=== PATIENT | male | born 1970 | race African-American/Black ===

== ENCOUNTER 2018-09-06 17:39 | Emergency (ER) | payer MEDICAID ==
[2018-09-06] MEDS ORDERED: Ketorolac Tromethamine 30 MG/ML VIAL ONE (18:17)
[2018-09-06 18:49] LABS: #Basophils 0.1 thou/uL (0.0-0.2); #Eosinphils 0.1 thou/uL (0.0-0.7); #Lymphocytes 2.2 thou/uL (1.20-3.40); #Monocytes 0.6 thou/uL (0.11-0.59); #Neutrophils 3.5 thou/uL (1.40-6.50); %Basophils 2.1 % (0.0-1.0); %Eosinophils 1.1 % (0.0-10.0); %Lymphocytes 33.9 % (21.0-51.0); %Monocytes 8.9 % (0.0-10.0); %Neutrophils 54.1 % (42.0-75.0); Hemoglobin 12.8 g/dL (14.0-18.0); Mean Corpuscular HGB CONC 34.4 g/dL (32.0-36.0); Mean Corpuscular Hemoglobin 32.8 pg (27.0-31.0); Mean Corpuscular Volume 95.3 fL (78.0-98.0); Mean Platelet Volume 10.1 fL (7.4-10.4); Platelet Count 221 thou/uL (130-400); RBC Distribution Width 11.7 % (11.5-14.5); White Blood Cell (WBC) Count 6.5 thou/uL (4.8-10.8)
[2018-09-06 19:07] LABS: ALT (SGPT) 21 U/L (8-55); AST (SGOT) 22 U/L (5-34); Albumin 4.1 g/dL (3.5-5.0); Alkaline Phosphatase 123 U/L (40-150); Anion Gap 11 mmol/L (10-20); BUN (Urea Nitrogen) 21 mg/dL (8.9-20.6); Bilirubin, Total 0.9 mg/dL (0.2-1.2); CRP (Inflammatory) Less than 0.50 mg/dL (= or < 0.5); Calc. Creatinine Clearance 0 mL/min (70-130); Carbon Dioxide 18 mmol/L (22-29); Chloride 109 mmol/L (98-107); Estimated GFR-MDRD 61; Globulin 3.1 g/dL (2.4-3.5); Glucose 110 mg/dL (70-105); Potassium 3.6 mmol/L (3.5-5.1); Protein, Total 7.2 g/dL (6.0-8.3); Sodium 134 mmol/L (136-145)
[2018-09-06 19:13] LABS: Calcium 12.9 mg/dL (7.8-10.44)
[2018-09-06] MEDS ORDERED: traMADol HCl 50 MG TAB ONE (19:35)
== END 2018-09-06 19:50 | disposition home or self-care (01) ==
LOC: NAV ERS 17:39
DX: M79.604 Pain in right leg (principal); M79.641 Pain in right hand; E83.52 Hypercalcemia; I10 Essential (primary) hypertension; Z86.73 Personal history of transient ischemic attack (TIA), and cerebral infarction without residual deficits; F32.9 Major depressive disorder, single episode, unspecified; F17.210 Nicotine dependence, cigarettes, uncomplicated; Z86.718 Personal history of other venous thrombosis and embolism
CPT/HCPCS: 80053; 85025; 85379; 86140; 96374; J1885

== ENCOUNTER 2018-09-07 13:06 | Outpatient (CLI) | payer MEDICAID ==
--- NOTE | 2018-09-07 14:36 | RAD ---
RIGHT HAND THREE VIEWS: History: Right hand pain. Old injury. FINDINGS/IMPRESSION: No acute fracture, dislocation, or bony destruction is identified. POS: OFF
--- NOTE | 2018-09-07 15:28 | ULT ---
ULTRASOUND VENOUS DOPPLER RIGHT UNILATERAL: Date: 09/07/18 HISTORY: Swelling. Deep venous thrombosis. COMPARISON: None. FINDINGS: Real-time Jefferson scale and color Doppler with spectral analysis of the right lower extremity venous sy stem was performed. The common femoral, femoral, proximal portions of greater saphenous and deep femo ral vein, as well as the popliteal and posterior veins were interrogated. Normal flow, augmentation, and compression. The peroneal vein is dilated. IMPRESSION: No deep venous thrombosis. Dilated peroneal vein. This may be sequelae of prior venous thrombosis. POS: MARIANNE
== END 2018-09-07 13:07 | disposition home or self-care (01) ==
LOC: NAV ULT 13:06
PROVIDERS: ATTEND Nurse Practitioner Family
DX: M79.641 Pain in right hand (principal); I83.91 Asymptomatic varicose veins of right lower extremity; Z86.718 Personal history of other venous thrombosis and embolism

== ENCOUNTER 2018-09-16 12:00 | Emergency (ER) | payer MEDICAID ==
[2018-09-16] MEDS ORDERED: methylPREDNISolone Acetate 40 mg/ml Vial ONE (12:42)
== END 2018-09-16 13:00 | disposition home or self-care (01) ==
LOC: NAV ERS 12:00
DX: G89.29 Other chronic pain (principal); M79.651 Pain in right thigh; F32.9 Major depressive disorder, single episode, unspecified; F17.210 Nicotine dependence, cigarettes, uncomplicated; Z86.718 Personal history of other venous thrombosis and embolism; Z86.73 Personal history of transient ischemic attack (TIA), and cerebral infarction without residual deficits; Z79.891 Long term (current) use of opiate analgesic; Z79.899 Other long term (current) drug therapy
CPT/HCPCS: 96372; J1030

== ENCOUNTER 2018-10-11 00:04 | Emergency (ER) | payer MEDICAID ==
[2018-10-11] MEDS ORDERED: Morphine 4 MG/ML VIAL ONE (00:45)
[2018-10-11] MEDS ORDERED: Ondansetron PF 4 MG/2 ML Vial ONE (00:46)
[2018-10-11 00:54] LABS: INR-International Normal Ratio 1.1; PTT 30.3 SEC (22.9-36.1); Prothrombin Time 14.4 SEC (12.0-14.7)
[2018-10-11 01:01] LABS: #Basophils 0.1 thou/uL (0.0-0.2); #Eosinphils 0.1 thou/uL (0.0-0.7); #Monocytes 0.5 thou/uL (0.11-0.59); %Basophils 1.2 % (0.0-1.0); %Eosinophils 1.3 % (0.0-10.0); %Lymphocytes 25.8 % (21.0-51.0); %Monocytes 6.4 % (0.0-10.0); %Neutrophils 65.3 % (42.0-75.0); Hemoglobin 12.9 g/dL (14.0-18.0); Mean Corpuscular HGB CONC 32.9 g/dL (32.0-36.0); Mean Corpuscular Hemoglobin 31.7 pg (27.0-31.0); Mean Corpuscular Volume 96.5 fL (78.0-98.0); Mean Platelet Volume 10.2 fL (7.4-10.4); Platelet Count 137 thou/uL (130-400); RBC Distribution Width 11.5 % (11.5-14.5); Red Blood Cell (RBC) Count 4.06 mill/uL (4.70-6.10); White Blood Cell (WBC) Count 7.7 thou/uL (4.8-10.8)
[2018-10-11 01:09] LABS: D-Dimer Test 9.34 *mcg/mL (0.27-0.43)
[2018-10-11 01:11] LABS: ALT (SGPT) 13 U/L (8-55); AST (SGOT) 12 U/L (5-34); Albumin 3.9 g/dL (3.5-5.0); Alkaline Phosphatase 105 U/L (40-150); Anion Gap 11 mmol/L (10-20); BUN (Urea Nitrogen) 14 mg/dL (8.9-20.6); Bilirubin, Total 0.7 mg/dL (0.2-1.2); Calc. Creatinine Clearance 0 mL/min (70-130); Carbon Dioxide 20 mmol/L (22-29); Chloride 109 mmol/L (98-107); Estimated GFR-MDRD 55; Globulin 3.2 g/dL (2.4-3.5); Glucose 100 mg/dL (70-105); Potassium 4.1 mmol/L (3.5-5.1); Protein, Total 7.1 g/dL (6.0-8.3); Sodium 136 mmol/L (136-145)
[2018-10-11 01:16] LABS: Calcium 13.6 mg/dL (7.8-10.44)
[2018-10-11] MEDS ORDERED: Enoxaparin Sodium 100 MG/ML SYRINGE ONE (01:19)
== END 2018-10-11 02:15 | disposition short-term general hospital (02) ==
LOC: NAV ERS 00:04
DX: R60.0 Localized edema (principal); M79.662 Pain in left lower leg; E83.52 Hypercalcemia; Z86.73 Personal history of transient ischemic attack (TIA), and cerebral infarction without residual deficits; Z86.718 Personal history of other venous thrombosis and embolism; F32.9 Major depressive disorder, single episode, unspecified; F17.210 Nicotine dependence, cigarettes, uncomplicated; Z79.01 Long term (current) use of anticoagulants; Z79.899 Other long term (current) drug therapy
CPT/HCPCS: 80053; 85025; 85379; 85610; 85730; 96372; 96374; 96375; J1650; J2270; J2405

== ENCOUNTER 2018-11-08 11:05 | Emergency (ER) | payer MEDICAID ==
[2018-11-08] MEDS ORDERED: Ondansetron PF 4 MG/2 ML Vial ONE (11:30)
[2018-11-08] MEDS ORDERED: Sodium Chloride 0.9% 1,000 ML ONE ×2 (11:30→12:24)
[2018-11-08 11:59] LABS: ALT (SGPT) 15 U/L (8-55); AST (SGOT) 20 U/L (5-34); Albumin 3.7 g/dL (3.5-5.0); Alkaline Phosphatase 97 U/L (40-150); Anion Gap 13 mmol/L (10-20); BUN (Urea Nitrogen) 22 mg/dL (8.9-20.6); Bilirubin, Total 1.7 mg/dL (0.2-1.2); Calc. Creatinine Clearance 0 mL/min (70-130); Carbon Dioxide 17 mmol/L (22-29); Chloride 105 mmol/L (98-107); Estimated GFR-MDRD 42; Globulin 3.7 g/dL (2.4-3.5); Glucose 142 mg/dL (70-105); Lipase 13 U/L (8-78); Potassium 3.5 mmol/L (3.5-5.1); Protein, Total 7.4 g/dL (6.0-8.3); Sodium 131 mmol/L (136-145)
[2018-11-08 12:07] LABS: Hemoglobin 14.4 g/dL (14.0-18.0); MDiff Complete? YES; Mean Corpuscular HGB CONC 34.3 g/dL (32.0-36.0); Mean Corpuscular Hemoglobin 31.8 pg (27.0-31.0); Mean Corpuscular Volume 92.6 fL (78.0-98.0); Mean Platelet Volume 9.8 fL (7.4-10.4); Platelet Count 167 thou/uL (130-400); RBC Distribution Width 11.9 % (11.5-14.5); Red Blood Cell (RBC) Count 4.53 mill/uL (4.70-6.10); White Blood Cell (WBC) Count 9.5 thou/uL (4.8-10.8)
[2018-11-08 12:08] LABS: Band 6 % (5-11); Calcium 12.4 mg/dL (7.8-10.44); Eosinophils 1 % (0-10); Lymphocytes 5 % (21-51); Monocytes 8 % (0-10); Neutrophil 71 % (42-75); Platelet Morphology Comment Appears Adequate
== END 2018-11-08 13:45 | disposition home or self-care (01) ==
LOC: NAV ERS 11:05
DX: R11.2 Nausea with vomiting, unspecified (principal); R19.7 Diarrhea, unspecified; F32.9 Major depressive disorder, single episode, unspecified; F17.210 Nicotine dependence, cigarettes, uncomplicated; I25.2 Old myocardial infarction; Z86.73 Personal history of transient ischemic attack (TIA), and cerebral infarction without residual deficits
CPT/HCPCS: 80053; 83690; 85025; 96361; 96374; J2405; J7050

== ENCOUNTER 2018-11-14 14:12 | Outpatient (CLI) | payer MEDICAID, OTHER ==
--- NOTE | 2018-11-14 15:32 | RAD ---
RIGHT HAND THREE VIEWS: HISTORY: Right hand pain. FINDINGS: Mild angulation and cortical remodeling of the first metatarsal neck suggests an old healed injury. Mild joint space narrowing and osteophytosis at the first carpometacarpal joint with minimal lateral subluxation. Mild osteoarthritic changes also involve the distal interphalangeal joints on the later al view. No acute fracture, dislocation, or aggressive osseous erosions. IMPRESSION: 1. Old healed injury of the second metacarpal neck. 2. Mild degenerative changes. 3. No acute osseous abnormalities are demonstrated. POS: MARIANNE
== END 2018-11-14 14:13 | disposition home or self-care (01) ==
LOC: NAV RAD 14:12
PROVIDERS: ATTEND Family Medicine
DX: Z02.71 Encounter for disability determination (principal); M79.641 Pain in right hand; M19.041 Primary osteoarthritis, right hand; Z87.828 Personal history of other (healed) physical injury and trauma

== ENCOUNTER 2019-01-02 10:22 | Emergency (ER) | payer MEDICAID ==
--- NOTE | 2019-01-02 11:01 | RAD ---
Two-view chest: Indications cough Comparison 10/11/2018 Lungs appear clear. No infiltrate. Heart and mediastinum unremarkable. IMPRESSION: No acute finding
[2019-01-02] MEDS ORDERED: Fentanyl 100 MCG/2 ML VIAL ONE (11:24)
[2019-01-02] MEDS ORDERED: Ondansetron PF 4 MG/2 ML Vial ONE (11:24)
[2019-01-02] MEDS ORDERED: Aspirin Chewable 81 MG TAB ONE (11:25)
[2019-01-02 11:41] LABS: #Basophils 0.1 thou/uL (0.0-0.2); #Eosinphils 0.1 thou/uL (0.0-0.7); #Lymphocytes 1.3 thou/uL (1.20-3.40); #Monocytes 0.6 thou/uL (0.11-0.59); #Neutrophils 4.3 thou/uL (1.40-6.50); %Basophils 0.9 % (0.0-1.0); %Eosinophils 1.3 % (0.0-10.0); %Lymphocytes 20.9 % (21.0-51.0); %Monocytes 9.1 % (0.0-10.0); %Neutrophils 67.8 % (42.0-75.0); Hemoglobin 12.3 g/dL (14.0-18.0); Mean Corpuscular HGB CONC 31.9 g/dL (32.0-36.0); Mean Corpuscular Hemoglobin 30.2 pg (27.0-31.0); Mean Corpuscular Volume 94.6 fL (78.0-98.0); Mean Platelet Volume 8.2 fL (7.4-10.4); Platelet Count 172 thou/uL (130-400); RBC Distribution Width 12.2 % (11.5-14.5); Red Blood Cell (RBC) Count 4.07 mill/uL (4.70-6.10); White Blood Cell (WBC) Count 6.3 thou/uL (4.8-10.8)
[2019-01-02 11:45] LABS: ALT (SGPT) 13 U/L (8-55); AST (SGOT) 13 U/L (5-34); Albumin 3.7 g/dL (3.5-5.0); Alkaline Phosphatase 109 U/L (40-150); Anion Gap 13 mmol/L (10-20); BUN (Urea Nitrogen) 13 mg/dL (8.9-20.6); Bilirubin, Total 0.7 mg/dL (0.2-1.2); Calc. Creatinine Clearance 0 mL/min (70-130); Carbon Dioxide 19 mmol/L (22-29); Chloride 108 mmol/L (98-107); Estimated GFR-MDRD 55; Globulin 3.4 g/dL (2.4-3.5); Glucose 86 mg/dL (70-105); Lipase 60 U/L (8-78); Protein, Total 7.1 g/dL (6.0-8.3); Sodium 136 mmol/L (136-145)
[2019-01-02 11:58] LABS: Calcium 13.1 mg/dL (7.8-10.44)
[2019-01-02 12:11] LABS: CKMB 1.4 ng/mL (0-6.6)
[2019-01-02] MEDS ORDERED: Sodium Chloride 0.9% 1,000 ML ONE (12:17)
== END 2019-01-02 12:40 | disposition short-term general hospital (02) ==
LOC: NAV ERS 10:22
DX: R07.89 Other chest pain (principal); R06.02 Shortness of breath; R79.89 Other specified abnormal findings of blood chemistry; E83.52 Hypercalcemia; M54.5 Low back pain; Z86.73 Personal history of transient ischemic attack (TIA), and cerebral infarction without residual deficits; Z86.718 Personal history of other venous thrombosis and embolism; F32.9 Major depressive disorder, single episode, unspecified; F17.210 Nicotine dependence, cigarettes, uncomplicated; Z79.899 Other long term (current) drug therapy; Z79.01 Long term (current) use of anticoagulants
CPT/HCPCS: 71046; 80053; 82553; 83690; 83880; 84484; 85025; 93005; 94760; 96374; 96375; J2405; J3010; J7050

== ENCOUNTER 2019-02-09 16:26 | Emergency (ER) | payer MEDICAID, OTHER ==
[2019-02-09] MEDS ORDERED: Dextrose 50% Abboject 50 ML SYRINGE ONE ×2 (16:51→18:31)
--- NOTE | 2019-02-09 17:13 | RAD ---
EXAM: Single view of the chest HISTORY: Shortness of breath and low blood sugar; dizziness COMPARISON: None FINDINGS: Single view of the chest shows a normal sized cardiomediastinal silhouette. There is no howard dence of consolidation, mass, or pleural effusion. The bones are unremarkable. IMPRESSION: No evidence of acute cardiopulmonary disease
[2019-02-09 17:23] LABS: Bilirubin Negative (Negative); Blood, Urine Trace (Negative); Clarity Clear (Clear); Glucose, Urine (Dipstick) 250 mg/dL (Negative); Leukocyte Negative (Negative); Nitrite Negative (Negative); Protein, Urine (Dipstick) Trace mg/dL (Neg-Trace)
[2019-02-09 17:24] LABS: #Basophils 0.1 thou/uL (0.0-0.2); #Lymphocytes 1.8 thou/uL (1.20-3.40); #Monocytes 0.5 thou/uL (0.11-0.59); #Neutrophils 9.1 thou/uL (1.40-6.50); %Basophils 0.8 % (0.0-1.0); %Eosinophils 0.4 % (0.0-10.0); %Lymphocytes 15.6 % (21.0-51.0); %Monocytes 4.7 % (0.0-10.0); %Neutrophils 78.5 % (42.0-75.0); Hemoglobin 14.1 g/dL (14.0-18.0); Mean Corpuscular HGB CONC 31.8 g/dL (32.0-36.0); Mean Corpuscular Hemoglobin 30.5 pg (27.0-31.0); Mean Corpuscular Volume 95.9 fL (78.0-98.0); Mean Platelet Volume 9.9 fL (7.4-10.4); Platelet Count 224 thou/uL (130-400); RBC Distribution Width 13.8 % (11.5-14.5); Red Blood Cell (RBC) Count 4.61 mill/uL (4.70-6.10); White Blood Cell (WBC) Count 11.6 thou/uL (4.8-10.8)
[2019-02-09 17:30] LABS: ALT (SGPT) 9 U/L (8-55); AST (SGOT) 17 U/L (5-34); Albumin 4.3 g/dL (3.5-5.0); Alkaline Phosphatase 137 U/L (40-150); Anion Gap 15 mmol/L (10-20); BUN (Urea Nitrogen) 15 mg/dL (8.9-20.6); Bilirubin, Total 0.5 mg/dL (0.2-1.2); Calc. Creatinine Clearance 0 mL/min (70-130); Carbon Dioxide 21 mmol/L (22-29); Chloride 107 mmol/L (98-107); Estimated GFR-MDRD 50; Potassium 3.7 mmol/L (3.5-5.1); Protein, Total 8.3 g/dL (6.0-8.3); Sodium 139 mmol/L (136-145)
[2019-02-09 17:35] LABS: Amphetamine Not Detected (NotDetected); Barbiturates Screen Not Detected (NotDetected); Benzodiazepine Screen Not Detected (NotDetected); Cocaine Metabolite Screen Detected (NotDetected); Medtox Control Line Valid? VALID (VALID); Methadone Not Detected (NotDetected); Methamphetamine Not Detected (NotDetected); Opiate Screen Not Detected (NotDetected); Oxycodone Screen Not Detected (NotDetected); Phencyclidine (PCP) Not Detected (NotDetected); THC/Cannabinoid Screen Not Detected (NotDetected); Tricyclic Screen Not Detected (NotDetected)
[2019-02-09 17:51] LABS: Calcium 14.5 mg/dL (7.8-10.44); Glucose 27 mg/dL (70-105)
[2019-02-09] MEDS ORDERED: Sodium Chloride 0.9% 1,000 ML ONE (17:54)
[2019-02-09 18:01] LABS: Bacteria/HPF None Seen HPF (None Seen); RBC/HPF 0-3 HPF (0-3); Squamous Epithelial None Seen HPF (0-3); WBC/HPF None Seen HPF (0-3)
== END 2019-02-09 19:25 | disposition short-term general hospital (02) ==
LOC: NAV ERS 16:26
DX: E16.2 Hypoglycemia, unspecified (principal); Z86.73 Personal history of transient ischemic attack (TIA), and cerebral infarction without residual deficits; Z86.718 Personal history of other venous thrombosis and embolism; E05.90 Thyrotoxicosis, unspecified without thyrotoxic crisis or storm; F17.210 Nicotine dependence, cigarettes, uncomplicated; F32.9 Major depressive disorder, single episode, unspecified; Z79.01 Long term (current) use of anticoagulants; Z79.51 Long term (current) use of inhaled steroids
CPT/HCPCS: 36416; 71045; 80053; 80306; 81003; 81015; 83880; 84484; 85025; 85379; 93005; 96361; 96374; 96376; 36415-59; J7042; J7050

== ENCOUNTER 2019-04-08 19:06 | Emergency (ER) | payer OTHER ==
[~2019-04-08 19:06] MED LIST: Iopamidol 370 76% 100 ML VIAL ONE
[2019-04-08] MEDS ORDERED: Ondansetron PF 4 MG/2 ML Vial ONE (19:42)
[2019-04-08] MEDS ORDERED: Morphine 4 MG/ML VIAL ONE ×2 (19:42→20:54)
[2019-04-08 19:48] LABS: Mean Corpuscular HGB CONC 32.1 g/dL (32.0-36.0); Mean Corpuscular Hemoglobin 31.2 pg (27.0-31.0); Mean Corpuscular Volume 97.2 fL (78.0-98.0); Mean Platelet Volume 8.9 fL (7.4-10.4); Platelet Count 223 thou/uL (130-400); Red Blood Cell (RBC) Count 4.16 mill/uL (4.70-6.10); White Blood Cell (WBC) Count 6.2 thou/uL (4.8-10.8)
[2019-04-08 19:51] LABS: Bilirubin Negative (Negative); Blood, Urine Small (Negative); Clarity Clear (Clear); Glucose, Urine (Dipstick) Negative (Negative); Leukocyte Negative (Negative); Nitrite Negative (Negative); Protein, Urine (Dipstick) 30 mg/dL (Neg-Trace)
[2019-04-08 19:51] LABS: ALT (SGPT) 11 U/L (8-55); AST (SGOT) 13 U/L (5-34); Alkaline Phosphatase 101 U/L (40-150); Anion Gap 12 mmol/L (10-20); BUN (Urea Nitrogen) 17 mg/dL (8.9-20.6); Bilirubin, Total 0.5 mg/dL (0.2-1.2); CK (CPK) 35 U/L (30-200); Calc. Creatinine Clearance 0 mL/min (70-130); Carbon Dioxide 18 mmol/L (22-29); Chloride 110 mmol/L (98-107); Estimated GFR-MDRD 56; Globulin 3.7 g/dL (2.4-3.5); Glucose 105 mg/dL (70-105); Lipase 67 U/L (8-78); Potassium 4.3 mmol/L (3.5-5.1); Protein, Total 7.7 g/dL (6.0-8.3); Sodium 136 mmol/L (136-145)
[2019-04-08 19:55] LABS: Eosinophils 1 % (0-10); Lymphocytes 34 % (21-51); MDiff Complete? YES; Monocytes 4 % (0-10); Neutrophil 61 % (42-75); Platelet Morphology Comment Appears Adequate; RBC Morphology Normal
[2019-04-08 20:10] LABS: Bacteria/HPF None Seen HPF (None Seen); RBC/HPF 0-3 HPF (0-3); Squamous Epithelial 0-3 HPF (0-3); WBC/HPF 0-3 HPF (0-3)
--- NOTE | 2019-04-08 20:18 | CT ---
CT abdomen and pelvis with IV contrast HISTORY: Abdomen pain. FINDINGS: Lung bases are clear. Small cysts involve the cortex of each kidney. The liver, spleen, adr enal glands, and pancreas are unremarkable. No enlarged lymph nodes or free fluid. Urinary bladder is incompletely distended. Appendix not inflamed. IMPRESSION: No significant abnormalities are demonstrated.
[2019-04-09] MEDS ORDERED: Ondansetron PF 4 MG/2 ML Vial ONE (06:55)
== END 2019-04-08 21:00 | disposition home or self-care (01) ==
LOC: NAV ERS 19:06
DX: E83.52 Hypercalcemia (principal); R10.30 Lower abdominal pain, unspecified; Z86.718 Personal history of other venous thrombosis and embolism; E21.3 Hyperparathyroidism, unspecified; F31.9 Bipolar disorder, unspecified; F41.9 Anxiety disorder, unspecified; F17.210 Nicotine dependence, cigarettes, uncomplicated; Z79.01 Long term (current) use of anticoagulants; Z79.899 Other long term (current) drug therapy
CPT/HCPCS: 74177; 80053; 81003; 81015; 82550; 83690; 84484; 85025; 93005; 96361; 96374; 96375; 96376; J2270; J2405; Q9967

== ENCOUNTER 2020-01-23 05:29 | Emergency (ER) | payer OTHER ==
[2020-01-23 06:34] LABS: #Lymphocytes 1.6 thou/uL (1.20-3.40); #Monocytes 0.4 thou/uL (0.11-0.59); #Neutrophils 2.4 thou/uL (1.40-6.50); %Basophils 0.9 % (0.0-1.0); %Eosinophils 1.1 % (0.0-10.0); %Lymphocytes 36.4 % (21.0-51.0); %Monocytes 8.4 % (0.0-10.0); %Neutrophils 53.2 % (42.0-75.0); Hemoglobin 11.6 g/dL (14.0-18.0); Mean Corpuscular Volume 96.5 fL (78.0-98.0); Mean Platelet Volume 7.6 fL (7.4-10.4); Platelet Count 239 thou/uL (130-400); RBC Distribution Width 18.1 % (11.5-14.5); Red Blood Cell (RBC) Count 4.02 mill/uL (4.70-6.10); White Blood Cell (WBC) Count 4.5 thou/uL (4.8-10.8)
[2020-01-23 06:35] LABS: INR-International Normal Ratio 1.4; Prothrombin Time 17.4 sec (12.0-14.7)
[2020-01-23 06:46] LABS: ALT (SGPT) 16 U/L (8-55); AST (SGOT) 13 U/L (5-34); Albumin 3.3 g/dL (3.5-5.0); Alkaline Phosphatase 68 U/L (40-110); Anion Gap 14 mmol/L (10-20); BUN (Urea Nitrogen) 20 mg/dL (8.9-20.6); Bilirubin, Total 0.5 mg/dL (0.2-1.2); CK (CPK) 77 U/L (30-200); Calc. Creatinine Clearance 0 mL/min (70-130); Calcium 8.2 mg/dL (7.8-10.44); Carbon Dioxide 20 mmol/L (22-29); Chloride 110 mmol/L (98-107); Estimated GFR-MDRD 45; Globulin 3.3 g/dL (2.4-3.5); Glucose 90 mg/dL (70-105); Potassium 3.8 mmol/L (3.5-5.1); Protein, Total 6.6 g/dL (6.0-8.3); Sodium 140 mmol/L (136-145)
[2020-01-23 06:54] LABS: D-Dimer Test 4.03 *mcg/mL (0.27-0.43)
[2020-01-23] MEDS ORDERED: Enoxaparin Sodium 100 MG/ML SYRINGE ONE (07:03)
[2020-01-23 07:04] LABS: CKMB 1.6 ng/mL (0-6.6)
[2020-01-23] MEDS ORDERED: HYDROcodone/Acetaminophen 5/325 mg Tablet ONE (07:07)
[2020-01-23] MEDS ORDERED: Aspirin 325 MG TAB ONE (07:13)
[2020-01-23] MEDS ORDERED: Nitroglycerin 2% Ointment 1 INCH/1 GM Packet ONE (07:20)
--- NOTE | 2020-01-23 07:54 | RAD ---
SINGLE VIEW OF THE CHEST: Comparison: 02-09-19 History: CHF, shortness of breath, leg swelling and dyspnea. FINDINGS: Single view of the chest shows an enlarged cardiomediastinal silhouette. The patient is status post s ternotomy. A pacemaker is seen with its leads in the right atrium and ventricle. There is no evidence of consolidation, mass, or pleural effusion. IMPRESSION: No evidence of acute cardiopulmonary disease. POS: EAA
== END 2020-01-23 07:58 | disposition short-term general hospital (02) ==
LOC: NAV ERS 05:29
DX: I50.9 Heart failure, unspecified (principal); R79.89 Other specified abnormal findings of blood chemistry; I25.2 Old myocardial infarction; E83.52 Hypercalcemia; F41.9 Anxiety disorder, unspecified; F31.9 Bipolar disorder, unspecified; I35.1 Nonrheumatic aortic (valve) insufficiency; F17.210 Nicotine dependence, cigarettes, uncomplicated; Z86.73 Personal history of transient ischemic attack (TIA), and cerebral infarction without residual deficits; Z86.718 Personal history of other venous thrombosis and embolism; Z86.711 Personal history of pulmonary embolism; Z79.01 Long term (current) use of anticoagulants
CPT/HCPCS: 36415; 71045; 80053; 82550; 82553; 83880; 84484; 85025; 85379; 85610; 93005; 94760; 96372; J1650

== ENCOUNTER 2020-03-24 17:09 | Outpatient (CLI) | payer OTHER ==
--- NOTE | 2020-03-24 18:01 | RAD ---
RIGHT KNEE FOUR VIEWS: History: Right knee pain. FINDINGS: There is chondrocalcinosis of the meniscal cartilage. There is tiny patellofemoral spurs. There is no joint effusion. IMPRESSION: No acute changes. Chondrocalcinosis. POS: TOMY
== END 2020-03-24 17:10 | disposition home or self-care (01) ==
LOC: NAV RAD 17:09
PROVIDERS: ATTEND Internal Medicine
DX: M25.561 Pain in right knee (principal); M11.261 Other chondrocalcinosis, right knee